=== PATIENT | female | born 1975 | race Caucasian/White ===

== ENCOUNTER 2024-10-08 15:42 | Observation (INO) ==
[2024-10-08 16:09] VITALS: BMI 30.7
--- NOTE | 2024-10-08 16:21 | ED.ABDFE ---
HPI Time Seen Time Seen by Provider: 10/08/24 16:21 PCP Primary Care Physician: Logan Nguyen Doctors Chief Complaint Comments: chest pain Chief Complaint:: Pt c/o abdominal pain x2 days; she has h/o GI issues, PUD and constipation. This morning she woke up with midsternal chest pain. States she tried to "ignore it" but it hasn't gone away. She describes CP as "sharp", doesn't radiate, rates 8/10. Pt states she had cardiac stents placed in April and was started on plavix and ASA. She states she has taken all medications today. Self Treatment fo Chief Complaint: She has been seeing Dr. Ford, Dr Gonzalez for GI issues but cont to have abdominal pain. Pt states "I used to be a drinker", a heavy drinker and states "I can feel my liver protruding". She states she quit drinking in March of this year. Pt denies v/d, last BM was yesterday, states she has had some nausea but "not bad". Pt states she is taking all meds as prescribed. COVID-19 Coronavirus risk:travel/contact w/high risk person: No Has patient experienced Coronavirus symptoms: No Reviewed Nurses Notes Review: Yes Source History Provided: Patient Mode of arrival Mode of Arrival: Ambulatory Timing Onset of Chief Complaint: 10/08/24 Came on: Gradually Duration Since Onset: Since Onset Duration: Days Severity Severity: Moderate Quality Quality: Aching and Sharp Context History of: None Modifying factors Worsening Factors: Movement Improving Factors: Nothing Associated signs and symptoms Associated Signs and Symptoms: Nausea and Constipation Other history Other History: coronary artery disease with stents in place PMH PMH Past Medical History: Yes Past Medical History: Anxiety, Coronary Artery Disease, Depression, Dyslipidemia, GERD, Hypertension and PUD Past Medical History Comment: insomnia, fibromyalgia, diverticulosis, recurrent constipation/GI issues Past Surgical History: Yes Surgical History: Angioplasty/Stents, 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 Family History History of Family Medical Conditions: Yes Family Medical History: Cancer and Coronary Artery Disease Social History Does patient currently use any type of tobacco product: Yes Have you used tobacco products in the last 12 months: Yes Type of Tobacco Use: Cigarettes Does any household member use tobacco: No Alcohol Use: None Do you use any recreational Drugs:: No Lives With: Spouse and Family Lives Where: Home Travel Risk Coronavirus risk:travel/contact w/high risk person: No Has patient experienced Coronavirus symptoms: No Infectious screening In the last 2 months have you had wt loss of >10#?: NO Have you had fever, night sweats or hemotysis?: No Have you traveled outside the country in the last 6 months?: No Isolation: Standard ROS Review of Systems Constitutional: Loss of Appetite Eyes: No Symptoms Reported ENTM: No Symptoms Reported Respiratoy: No Symptoms Reported Cardiovascular: Chest Pain Gastrointestinal/Abdominal: Abdominal Pain and Nausea Genitourinary: No Symptoms Reported Neurological: No Symptoms Reported Musculoskeletal: No Symptoms Reported Integumentary: No Symptoms Reported Hematologic/Lymphatic: No Symptoms Reported Endocrine: No Symptoms Reported Psychiatric: No Symptoms Reported PE Vital Signs Vitals: Vital Signs Temperature 98.5 F Pulse Rate 53 Pulse Rate 56 Pulse Rate 50 Pulse Rate 54 Pulse Rate 49 Pulse Rate 49 Pulse Rate 46 Pulse Rate 44 Pulse Rate 48 Pulse Rate 48 Pulse Rate 47 Pulse Rate 48 Pulse Rate 50 Pulse Rate 46 Pulse Rate 50 Pulse Rate 51 Pulse Rate 47 Pulse Rate 49 Pulse Rate 49 Pulse Rate 52 Pulse Rate 57 Pulse Rate 54 Pulse Rate 55 Pulse Rate 54 Pulse Rate 57 Pulse Rate 54 Pulse Rate 55 Pulse Rate 55 Pulse Rate 52 Pulse Rate 57 Pulse Rate 60 Pulse Rate 59 Pulse Rate 60 Pulse Rate 61 Pulse Rate 59 Pulse Rate 72 Respiratory Rate 31 Respiratory Rate 19 Respiratory Rate 22 Respiratory Rate 26 Respiratory Rate 45 Respiratory Rate 47 Respiratory Rate 29 Respiratory Rate 38 Respiratory Rate 32 Respiratory Rate 20 Respiratory Rate 36 Respiratory Rate 36 Respiratory Rate 40 Respiratory Rate 15 Respiratory Rate 46 Respiratory Rate 23 Respiratory Rate 19 Respiratory Rate 26 Respiratory Rate 17 Respiratory Rate 16 Respiratory Rate 17 Respiratory Rate 19 Respiratory Rate 23 Respiratory Rate 19 Respiratory Rate 19 Respiratory Rate 23 Respiratory Rate 19 Respiratory Rate 21 Respiratory Rate 31 Respiratory Rate 19 Respiratory Rate 19 Respiratory Rate 21 Respiratory Rate 16 Respiratory Rate 21 Respiratory Rate 32 Respiratory Rate 32 Respiratory Rate 21 Respiratory Rate 19 Respiratory Rate 23 Respiratory Rate 31 Respiratory Rate 20 Respiratory Rate 19 Respiratory Rate 29 Respiratory Rate 20 Respiratory Rate 18 Respiratory Rate 27 Respiratory Rate 20 Respiratory Rate 24 Blood Pressure 171/82 Blood Pressure 173/81 Blood Pressure 205/98 Blood Pressure 205/98 Blood Pressure 191/98 Blood Pressure 195/93 Blood Pressure 184/89 Blood Pressure 187/88 Blood Pressure 195/86 Blood Pressure 170/78 Blood Pressure 187/90 Blood Pressure 193/96 Blood Pressure 167/84 Blood Pressure 176/85 Blood Pressure 182/87 Blood Pressure 187/97 Blood Pressure 169/86 Blood Pressure 168/82 Blood Pressure 172/89 Blood Pressure 165/89 Blood Pressure 170/86 Blood Pressure 178/100 Blood Pressure 174/93 Blood Pressure 173/93 Blood Pressure 172/97 Blood Pressure 173/95 Blood Pressure 172/93 Blood Pressure 172/93 Blood Pressure 163/86 Blood Pressure 163/82 Blood Pressure 166/81 Blood Pressure 157/74 Blood Pressure 163/74 Blood Pressure 165/79 O2 Sat by Pulse Oximetry 100 O2 Sat by Pulse Oximetry 99 O2 Sat by Pulse Oximetry 98 O2 Sat by Pulse Oximetry 99 O2 Sat by Pulse Oximetry 97 O2 Sat by Pulse Oximetry 96 O2 Sat by Pulse Oximetry 97 O2 Sat by Pulse Oximetry 97 O2 Sat by Pulse Oximetry 98 O2 Sat by Pulse Oximetry 99 O2 Sat by Pulse Oximetry 94 O2 Sat by Pulse Oximetry 95 O2 Sat by Pulse Oximetry 97 O2 Sat by Pulse Oximetry 93 O2 Sat by Pulse Oximetry 98 O2 Sat by Pulse Oximetry 96 O2 Sat by Pulse Oximetry 94 O2 Sat by Pulse Oximetry 98 O2 Sat by Pulse Oximetry 96 O2 Sat by Pulse Oximetry 97 O2 Sat by Pulse Oximetry 97 O2 Sat by Pulse Oximetry 99 O2 Sat by Pulse Oximetry 97 O2 Sat by Pulse Oximetry 97 O2 Sat by Pulse Oximetry 95 O2 Sat by Pulse Oximetry 98 O2 Sat by Pulse Oximetry 98 O2 Sat by Pulse Oximetry 98 O2 Sat by Pulse Oximetry 97 O2 Sat by Pulse Oximetry 98 O2 Sat by Pulse Oximetry 98 O2 Sat by Pulse Oximetry 95 O2 Sat by Pulse Oximetry 96 O2 Sat by Pulse Oximetry 97 O2 Sat by Pulse Oximetry 98 O2 Sat by Pulse Oximetry 97 General Limitations: No Limitations General Appearance: Alert, Anxious and In Distress Head Head Exam: Normal Inspection, Atraumatic and Normocephalic Eyes Eye exam: Normal Appearance, PERRL and EOMI ENT ENT Exam: Mucous Membranes Moist Neck Neck Exam: Normal Inspection, Full ROM and Trachea Midline Chest Chest Inspection: Normal Inspection Respiratory Respiratory Exam: Normal Lung Sounds Bilat and Chest Wall Tenderness Respiratory Exam: Bilateral: Clear to Auscultation Cardiovascular Cardiovascular Exam: +S1 and +S2 Abdominal Exam Abdominal Exam: Normal Inspection, Normal Bowel Sounds, Soft and Tenderness Abdominal Tenderness: Epigastrium Back Back Exam: Normal Inspection Neurologic Neurological Exam: Alert Psychiatric Psychiatric Exam: Normal Affect Skin Skin Exam: Normal Color MDM Differential Diagnosis Differential Diagnosis- Considerations may include:: Angina/KS and Gastritus/PUD Other differential diagnosis: pneumonia COURSE Treatment Treatment: labs ,ekg,nitro asa,iv morphine ROR Labs Reviewed Laboratory Results Reviewed?: Yes 10/08/24 16:28 10/08/24 16: Laboratory: WBC 7.4 X10^3/uL (3.6-10.0) 10/08/24 16: RBC 5.40 X10^6/uL (3.5-5.4) 10/08/24 16: Hgb 16.5 g/dL (12.0-16.0) H 10/08/24 16:28 Hct 48.0 % (36.0-47.0) H 10/08/24 16: MCV 88.9 fL (80.0-100.0) 10/08/24 16: MCH 30.5 pg (27.0-34.0) 10/08/24 16: MCHC 34.3 g/dL (33.0-35.0) 10/08/24 16: RDW 13.2 % (11.6-16.5) 10/08/24 16: Plt Count 188 X10^3/uL (150.0-450.0) 10/08/24 16: MPV 8.8 fL (7.4-11.0) 10/08/24 16: Neut % (Auto) 67.3 % (42.0-75.0) 10/08/24 16: Lymph % (Auto) 25.9 % (21.0-51.0) 10/08/24 16: [place] % (Auto) 3.9 % (0.0-13.0) 10/08/24 16:28 Eos % (Auto) 1.0 % (0.9-2.9) 10/08/24 16: Baso % (Auto) 1.9 % (0.2-1.0) H 10/08/24 16: Neut # (Auto) 5.0 x10^3/uL (2.2-4.8) H 10/08/24 16:28 Lymph # (Auto) 1.9 X10^3/uL (1.3-2.9) 10/08/24 16:28 [place] # (Auto) 0.3 x10^3/uL (0.3-0.8) 10/08/24 16:28 Eos # (Auto) 0.1 x10^3/uL (0.0-0.2) 10/08/24 16:28 Baso # (Auto) 0.1 X10^3/uL (0.0-0.1) 10/08/24 16:28 Absolute Nucleated RBC 0.8 /100WBC 10/08/24 16:28 PT 14.9 SECONDS (11.8-14.3) 10/08/24 16:28 INR Target Range - 10/08/24 16:28 INR 1.16 (0.8-1.3) 10/08/24 16:28 APTT 31.0 SECONDS (22.9-36.5) 10/08/24 16:28 PTT Comment - 10/08/24 16:28 D-Dimer 0.32 ug/ml (0.0-0.57) 10/08/24 16:28 Sodium 142 mmol/L (136-145) 10/08/24 16:28 Corrected Sodium 143 mmol/L (136-145) 10/08/24 16:28 Potassium 3.6 mmol/L (3.5-5.1) 10/08/24 16:28 Chloride 107 mmol/L (98-107) 10/08/24 16:28 Carbon Dioxide 23.9 mmol/L (21-32) 10/08/24 16:28 BUN 8 mg/dL (7-18) 10/08/24 16:28 Creatinine 0.67 mg/dL (0.55-1.02) 10/08/24 16:28 Est GFR (MDRD) Af Amer > 60 (>60) 10/08/24 16:28 Est GFR (MDRD) Non-Af > 60 (>60) 10/08/24 16:28 Glucose 126 mg/dL (65-99) H 10/08/24 16:28 Calcium 9.4 mg/dL (8.5-10.1) 10/08/24 16:28 Corrected Calcium TNP 10/08/24 16:28 Total Bilirubin 0.60 mg/dL (0.2-1.0) 10/08/24 16:28 AST 20 Units/L (15-37) 10/08/24 16:28 ALT 26 Units/L (12-78) 10/08/24 16:28 Alkaline Phosphatase 158 Units/L (46-116) H 10/08/24 16:28 Creatine Kinase 46 Units/L (26-192) 10/08/24 16:28 Troponin I High Sens 15.9 ng/L (4.0-60.0) 10/08/24 18:27 B-Natriuretic Peptide 139 pg/mL (0-79) H 10/08/24 16:28 Total Protein 8.0 g/dL (6.4-8.2) 10/08/24 16:28 Albumin 3.9 g/dL (3.4-5.0) 10/08/24 16:28 Globulin 4.1 g/dL (2.5-4.5) 10/08/24 16:28 Albumin/Globulin Ratio 1.0 Ratio (1.1-2.1) L 10/08/24 16:28 XRAY X-ray Results: normal cxr .no acute ST changes EKG except LBBB as before Opioid Opioid Risk Tool Age ([place] box if 16-45): No History of Preadolescent Sexual Abuse: No Total: 0 Total Score Risk Category: Low Risk Copyright: [facility] predicting aberrant behaviors Discharge Plan Diagnosis Discharge Problem: Chest pain Discharge Plan Patient Disposition: 09 ADMITTED INPATIENT Condition: Stable Prescriptions: No Action aspirin 81 mg tablet,chewable 1 tab PO QDAY sucralfate 100 mg/mL suspension 10 ml PO TID PRN Rx Instructions: take 15 mins prior to meal atorvastatin 40 mg tablet 80 mg PO QPM clopidogrel 75 mg tablet 75 mg PO QDAY tramadol 50 mg tablet 50 mg PO QDAY PRN (Reason: pain) pantoprazole 40 mg tablet,delayed release (DR/EC) 40 mg PO BID metoprolol tartrate 50 mg tablet 50 mg PO BID hydralazine 50 mg tablet 50 mg PO BID losartan 100 mg tablet 100 mg PO QDAY metoclopramide HCl 10 mg tablet 10 mg PO QID duloxetine 60 mg capsule,delayed release(DR/EC) 60 mg PO QDAY lactulose 10 gram/15 mL solution 30 ml PO BID PRN (Reason: constipation) Health Concerns: Post Hospitalization: new medications and changes needed to prevent readmission or further decline. Pt educated and given instructions on all concerns. Plan of Treatment: Continue with present treatment and follow up plan. Pt is to keep follow up appointment as instructed and take medications as ordered. Orders to Discharge Patient Discharge Orders: Transfer (Routine); Ordered 10/08/24 Ordered By: Tiburcio Yeager Follow ups/Referrals Follow ups/Referrals: Keli Ford MD [Primary Care Provider, Unknown] - 3 days Instructions Stand Alone Forms: Find Help Web Site, Post Hospital Follow Up Care Print Language: LATVIAN ADDITIONAL NOTES Additional Notes Additional Notes: cardiac enzymes x2 neg .No acute ST changes but has lbbb .pt has reproducible left chest pain .Does have hx of PUD /gastritis seeing. Has been evaluated by dr Lisa berry on PPI and carafate
[2024-10-08] MEDS: NITROSTAT SL PRN (16:31)
--- NOTE | 2024-10-08 16:33 | EKG ---
Test Reason : chest pain Blood Pressure : */* mmHG Vent. Rate : 59 BPM Atrial Rate : 59 BPM P-R Int : 140 ms QRS Dur : 130 ms QT Int : 502 ms P-R-T Axes : 28 2 138 degrees QTc Int : 496 ms Sinus bradycardia Left bundle branch block Abnormal ECG When compared with ECG of 07-SEP-2024 18:30, T wave inversion less evident in Lateral leads Confirmed by Seymour Rothman MD ([id number]) on 10/09/2024 8:15:10 AM Referred By: Confirmed By: Seymour Rothman MD
[2024-10-08 16:44] LABS: MEAN PLATELET VOLUME 8.8 fL (7.4-11.0); RED CELL DISTRIBUTION WIDTH 13.2 % (11.6-16.5)
--- NOTE | 2024-10-08 16:44 | RAD ---
EXAM: CHEST, 1 VIEW HISTORY: chest pain; Unavailable COMPARISON: August 2024 FINDINGS: The trachea is midline. The cardiac silhouette is unremarkable. The lungs are clear without focal infiltrate or effusion. The bony thorax is unremarkable. IMPRESSION: No acute cardiopulmonary disease. THIS IS AN ELECTRONICALLY VERIFIED FINAL REPORT 10/08/2024 4:39 PM - Electronically signed by Nam Betts MD
[2024-10-08] MEDS: MORPHINE SULFATE INJ 2 MG INJ IVP ONE ×2 (16:46→17:25)
[2024-10-08 16:47] LABS: INR 1.16 (0.8-1.3)
[2024-10-08 16:56] LABS: COR NA(FOR HYPERGLY) 143 mmol/L (136-145); CREATININE 0.67 mg/dL (0.55-1.02); eGFR NON BLACK RACES > 60 (>60)
[2024-10-08] MEDS: TYLENOL 500 MG TAB EXTRA STRENGTH PO ONE (18:03)
[2024-10-08] MEDS: APRESOLINE TAB 25 MG PO ONE (19:28)
[2024-10-08] MEDS ORDERED: ZOFRAN TAB 4 MG SL PRN (22:16)
[2024-10-08] MEDS ORDERED: TYLENOL 325 MG TAB PO PRN (22:16)
[2024-10-08] MEDS: APRESOLINE TAB 25 MG PO SCH (23:04)
[2024-10-08] MEDS: LIPITOR TAB 40 MG PO SCH (23:05)
[2024-10-08] MEDS: PROTONIX TAB 40 MG PO SCH (23:05)
[2024-10-08] MEDS: MORPHINE SULFATE INJ 2 MG INJ IVP PRN (23:48)
[2024-10-09] MEDS: ULTRAM PO PRN (01:07)
[2024-10-09] MEDS: LOPRESSOR TAB 50 MG PO SCH (03:42)
[2024-10-09] MEDS: PLAVIX PO SCH (08:08)
[2024-10-09] MEDS: CYMBALTA PO SCH (08:08)
[2024-10-09] MEDS: COZAAR PO SCH (08:08)
[2024-10-09] MEDS: ASPIRIN 81 MG CHEWTAB PO SCH (08:08)
[2024-10-09] MEDS: TORADOL 30 MG VIAL IVP ONE (10:33)
[2024-10-09] MEDS: PEPCID TAB 20 MG PO SCH (10:33)
--- NOTE | 2024-10-09 10:50 | DR.H&P ---
H&P History & Physical for Day of: H&P Date: 10/09/24 Chief Complaint Chief Complaint: abdominal pain, nausea History of Present Illness History of Present Illness: Patient is a 49-year-old female with a past medical history of CAD status post PCI in April 2024, gastritis, PUD, GERD, anxiety, depression, hypertension, hyperlipidemia and history of alcohol use presented with worsening abdominal pain and nausea. She also had some mid-sternal chest tightness. She has been having the symptoms for a while with recent worsening. She does see GI and recently had EGD which showed severe gastritis and peptic ulcer disease. She has been taking Protonix, Carafate and dicyclomine. Her blood pressure was elevated in the ER 220/100. Workup included troponins x 3 negative, BNP 139, WBC 7.4 creatinine 0.67. Chest x-ray was negative. She was given nitroglycerin and hydralazine for blood pressure control in the ER. She reports having a headache this morning. She continues to have abdominal pain, more on the right side. Labs/imaging reviewed: - WBC 7.4 hemoglobin 16.5 platelet 188 potassium 3.6 creatinine 0.67 BNP 139 glucose 126 - Troponin x 3 negative - Chest x-ray no acute changes Plan: Continue to monitor with telemetry. Order abdominal ultrasound. Continue Protonix, add famotidine and Carafate. Add Toradol. Continue pain control as needed. Monitor blood pressure. Resume home medications. Replace electrolytes as per protocol. Monitor a.m. labs and imaging. 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 Family History Family Medical History: Cancer Social History Does patient currently use any type of tobacco product: Yes Have you used tobacco products in the last 12 months: Yes Type of Tobacco Use: Cigarettes How many years tobacco product used: 20 Does any household member use tobacco: No Alcohol Use: None Drug Use: None Medications Home Medications: Home Medications Medication Instructions Recorded Confirmed Type aspirin 81 mg chewable tablet 1 tab PO QDAY 05/29/24 0 10/08/24 History sucralfate 100 mg/mL oral 10 ml PO TID PRN 09/07/24 History suspension atorvastatin 40 mg tablet 80 mg PO QPM 10/08/24 History clopidogrel 75 mg tablet 75 mg PO QDAY 10/08/2410/08 History duloxetine 60 mg capsule,delayed 60 mg PO QDAY 5 10/08/24 History release hydralazine 50 mg tablet 50 mg PO BID 10/08/24 History lactulose 10 gram/15 mL oral 30 ml PO BID PRN constipa tion 10/08/24 10/08/24 History solution losartan 100 mg tablet 100 mg PO QDAY 10/08/2409/22 History metoclopramide HCl 10 mg tablet 10 mg PO QID 10/08/24 10/08/24 History metoprolol tartrate 50 mg tablet 50 mg PO BID 10/08/24 10/08/24 History pantoprazole 40 mg tablet,delayed 40 mg PO BID 5 10/08/24 History release tramadol 50 mg tablet 50 mg PO QDAY PRN pain 10/0810/08/24 History Allergies Allergies Allergy/AdvReac Type Severity Reaction Status Date / Time No Known Drug Allergies Allergy Unknown Verified 10/08/24 15:43 Labs 10/08/24 16:28 10/08/24 16:28 Labs: Laboratory WBC 7.4 X10^3/uL (3.6-10.0) 10/08/24 16:28 RBC 5.40 X10^6/uL (3.5-5.4) 10/08/24 16:28 Hgb 16.5 g/dL (12.0-16.0) H 10/08/24 16:28 Hct 48.0 % (36.0-47.0) H 10/08/24 16:28 MCV 88.9 fL (80.0-100.0) 10/08/24 16:28 MCH 30.5 pg (27.0-34.0) 10/08/24 16:28 MCHC 34.3 g/dL (33.0-35.0) 10/08/24 16:28 RDW 13.2 % (11.6-16.5) 10/08/24 16:28 Plt Count 188 X10^3/uL (150.0-450.0) 10/08/24 16:28 MPV 8.8 fL (7.4-11.0) 10/08/24 16: Neut % (Auto) 67.3 % (42.0-75.0) 10/08/24 16:28 Lymph % (Auto) 25.9 % (21.0-51.0) 10/08/24 16:28 [place] % (Auto) 3.9 % (0.0-13.0) 10/08/24 16:28 Eos % (Auto) 1.0 % (0.9-2.9) 10/08/24 16:28 Baso % (Auto) 1.9 % (0.2-1.0) H 10/08/24 16:28 Neut # (Auto) 5.0 x10^3/uL (2.2-4.8) H 10/08/24 16:28 Lymph # (Auto) 1.9 X10^3/uL (1.3-2.9) 10/08/24 16:28 [place] # (Auto) 0.3 x10^3/uL (0.3-0.8) 10/08/24 16:28 Eos # (Auto) 0.1 x10^3/uL (0.0-0.2) 10/08/24 16:28 Baso # (Auto) 0.1 X10^3/uL (0.0-0.1) 10/08/24 16:28 Absolute Nucleated RBC 0.8 /100WBC 10/08/24 16:28 PT 14.9 SECONDS (11.8-14.3) 10/08/24 16:28 INR Target Range - 10/08/24 16: INR 1.16 (0.8-1.3) 10/08/24 16:28 APTT 31.0 SECONDS (22.9-36.5) 10/08/24 16:28 PTT Comment - 10/08/24 16:28 D-Dimer 0.32 ug/ml (0.0-0.57) 10/08/24 16:28 Sodium 142 mmol/L (136-145) 10/08/24 16:28 Corrected Sodium 143 mmol/L (136-145) 10/08/24 16:28 Potassium 3.6 mmol/L (3.5-5.1) 10/08/24 16:28 Chloride 107 mmol/L (98-107) 10/08/24 16:28 Carbon Dioxide 23.9 mmol/L (21-32) 10/08/24 16:28 BUN 8 mg/dL (7-18) 10/08/24 16:28 Creatinine 0.67 mg/dL (0.55-1.02) 10/08/24 16:28 Est GFR (MDRD) Af Amer > 60 (>60) 10/08/24 16:28 Est GFR (MDRD) Non-Af > 60 (>60) 10/08/24 16:28 Glucose 126 mg/dL (65-99) H 10/08/24 16:28 Calcium 9.4 mg/dL (8.5-10.1) 10/08/24 16:28 Corrected Calcium TNP 10/08/24 16:28 Total Bilirubin 0.60 mg/dL (0.2-1.0) 10/08/24 16:28 AST 20 Units/L (15-37) 10/08/24 16:28 ALT 26 Units/L (12-78) 10/08/24 16:28 Alkaline Phosphatase 158 Units/L (46-116) H 10/08/24 16:28 Creatine Kinase 46 Units/L (26-192) 10/08/24 16:28 Troponin I High Sens 19.6 ng/L (4.0-60.0) 10/08/24 22:05 B-Natriuretic Peptide 139 pg/mL (0-79) H 10/08/24 16:28 Total Protein 8.0 g/dL (6.4-8.2) 10/08/24 16:28 Albumin 3.9 g/dL (3.4-5.0) 10/08/24 16:28 Globulin 4.1 g/dL (2.5-4.5) 10/08/24 16:28 Albumin/Globulin Ratio 1.0 Ratio (1.1-2.1) L 10/08/24 16:28 Review of Systems Constitutional: No Symptoms Reported Eyes: No Symptoms Reported ENT: No Symptoms Reported Respiratory: No Symptoms Reported Cardiovascular: Chest Pain Gastrointestinal: Nausea, Abdominal Pain and Constipation Genitourinary: No Symptoms Reported Musculoskeletal: No Symptoms Reported Skin: No Symptoms Reported Neurological: Other (headache) Physical Exam Vital Signs: Vital Signs Temperature 98.0 F Pulse Rate [Bilateral Radial] 54 Respiratory Rate 20 Respiratory Rate 18 Respiratory Rate 18 Respiratory Rate 18 Blood Pressure [Left Arm] 155/72 O2 Sat by Pulse Oximetry 95 Oriented: Normal Respiratory: Clear Throughout Cardiovascular: Normal Auscultation: Bowel Sounds: Normal Tenderness: RUQ, RLQ and Periumbilical Skin: Normal Musculoskeletal: Normal Psychiatric: Normal Mood Description: Calm Affect: Anxious Speech Pattern: Clear and Appropriate Assessment/Plan (1) Chest pain: Qualifiers: Chest pain type: unspecified Qualified Code(s): R07.9 - Chest pain, unspecified Status: Acute (2) Accelerated hypertension: Status: Acute (3) Abdominal pain: Qualifiers: Abdominal location: left lower quadrant Qualified Code(s): R10.32 - Left lower quadrant pain Status: Acute (4) PUD (peptic ulcer disease): Status: Chronic (5) CAD (coronary artery disease): Qualifiers: Coronary Disease-Associated Artery/Lesion type: [place] artery [place] vs. transplanted heart: [place] heart Associated angina: without angina Q ualified Code(s): I25.10 - Atherosclerotic heart disease of [place] coronary artery without angina pectoris Status: Chronic (6) Gastritis: Qualifiers: Gastritis type: unspecified gastritis Chronicity: chronic Gastritis bleeding: presence of bleeding unspecified Qualified Code(s): K29.50 - Unspecified chronic gastritis without bleeding Status: Chronic
[2024-10-09] MEDS: CARAFATE PO SCH (11:57)
[2024-10-09] MEDS ORDERED: DEMEROL INJ IVP PRN (12:44)
[2024-10-09] MEDS: MORPHINE SULFATE INJ 2 MG INJ IVP PRN (13:18)
[2024-10-09] MEDS: FIORICET TAB PO PRN (17:12)
[2024-10-10 06:06] LABS: MEAN PLATELET VOLUME 8.8 fL (7.4-11.0); RED CELL DISTRIBUTION WIDTH 12.9 % (11.6-16.5)
[2024-10-10 06:31] LABS: CREATININE 0.63 mg/dL (0.55-1.02); eGFR NON BLACK RACES > 60 (>60)
[2024-10-10] MEDS ORDERED: CONSULT PHARMACY - POTASSIUM & MAGNESIUM XX SCH (08:00)
[2024-10-10] MEDS: MAGNESIUM SULFATE 1 GRAM/100 mL PREMIX 1 G/100 ML BAG IV SCH (08:30)
[2024-10-10] MEDS: NICOTINE PATCH TD SCH (08:33)
--- NOTE | 2024-10-10 09:53 | US ---
EXAM: US ABDOMEN COMPLETE HISTORY: RUQ PAIN, NAUSEA; COMPARISON: None TECHNIQUE: 81 images made by the tar heel. Rader scale and color-flow images of the abdomen were obtained. FINDINGS: The liver has normal echogenicity and size. No mass or intrahepatic biliary duct dilatation is present. The intrahepatic inferior vena cava was imaged. The portal vein is patent with blood flow toward the liver. The hepatic artery was patent. The visualized hepatic veins are patent with blood flow toward the right atrium. Very limited visualization of the pancreas shows no significant abnormality. No gallbladder is identified consistent with prior cholecystectomy. No extrahepatic biliary duct dilatation; common duct is normal. The right kidney is normal in size and echogenicity. The left kidney is normal in size and echogenicity. No hydronephrosis or solid mass. Right resistive index measures 0.71. Left resistive index measures 0.63. The spleen has a lobular contour, but is normal in size and echogenicity. Aorta has a normal caliber with no abdominal aortic aneurysm. Aortic bifurcation not seen because of overlying bowel gas. No ascites. IMPRESSION: 1. No significant abnormality THIS IS AN ELECTRONICALLY VERIFIED FINAL REPORT 10/10/2024 9:49 AM - Electronically signed by Dominguez Capellan MD
[2024-10-10] MEDS: K-RIDER 10 MEQ/100 ML WATER 10 MEQ/100 ML BAG IV SCH (10:27)
[2024-10-10] MEDS ORDERED: LEVSIN/MAALOX/LIDOC VISC PO PRN (10:29)
--- NOTE | 2024-10-10 10:36 | PCM.PROG ---
Progress Note Progress Note for Day of Date of Exam: 10/10/24 Subjective Subjective: Patient seen at bedside, no acute events overnight. She states her headache has resolved. She still has abdominal pain with some nausea. She reports decreased appetite. She had an abdominal ultrasound done this morning. She denies any vomiting or diarrhea. Labs/imaging reviewed: - WBC 5.3 hemoglobin 15.1 potassium 3.5 creatinine 0.63 - Abdominal ultrasound reviewed: No acute changes Plan: Continue Protonix, Pepcid and Carafate. Add GI cocktail. Continue pain control. Will DC Tylenol and tramadol. Add Marion as needed. Continue morphine prn. Replace electrolytes as per protocol. Continue zofran prn. Switch to full liquid diet. Continue home medications. Monitor AM labs/imaging. Past Medical Family Social History Allergies: Allergies No Known Drug Allergies Allergy (Unknown, Verified 10/08/24 15:43) Onset Date: 11/17/2021 Vital Signs and I&O's Vital Signs: Vital Signs Temperature 97.9 F Temperature 98.0 F Pulse Rate [Bilateral Radial] 54 Pulse Rate [Bilateral Radial] 52 Respiratory Rate 21 Respiratory Rate 21 Respiratory Rate 20 Respiratory Rate 20 Respiratory Rate 20 Respiratory Rate 20 Respiratory Rate 20 Blood Pressure [Left Arm] 161/81 Blood Pressure [Left Arm] 160/80 O2 Sat by Pulse Oximetry 96 O2 Sat by Pulse Oximetry 98 Intake and Output: Intake & Output 10/07/24 10/08/24 10/09/24 10/10/24 23:59 23:59 23:59 23:59 Intake Total 1130 / 1130 510 / 510 Balance 1130 / 1130 510 / 510 Physical Exam Oriented: Normal Respiratory: Normal Cardiovascular: Normal Auscultation: Bowel Sounds: Normal Tenderness: Periumbilical and Mild Skin: Normal Musculoskeletal: Normal Psychiatric: Normal Mood Description: Calm Affect: Anxious Speech Pattern: Clear and Appropriate Laboratory and Diagnostics 10/10/24 05:18 10/10/24 05:18 Labs: Laboratory WBC 5.3 X10^3/uL (3.6-10.0) 10/10/24 05:18 RBC 5.08 X10^6/uL (3.5-5.4) 10/10/24 05:18 Hgb 15.1 g/dL (12.0-16.0) 10/10/24 05:18 Hct 45.2 % (36.0-47.0) 10/10/24 05:18 MCV 88.9 fL (80.0-100.0) 10/10/24 05:18 MCH 29.8 pg (27.0-34.0) 10/10/24 05:18 MCHC 33.5 g/dL (33.0-35.0) 10/10/24 05:18 RDW 12.9 % (11.6-16.5) 10/10/24 05:18 Plt Count 143 X10^3/uL (150.0-450.0) L 10/10/24 05:18 MPV 8.8 fL (7.4-11.0) 10/10/24 05:18 Neut % (Auto) 57.5 % (42.0-75.0) 10/10/24 05:18 Lymph % (Auto) 32.6 % (21.0-51.0) 10/10/24 05:18 [place] % (Auto) 6.6 % (0.0-13.0) 10/10/24 05:18 Eos % (Auto) 1.8 % (0.9-2.9) 10/10/24 05:18 Baso % (Auto) 1.5 % (0.2-1.0) H 10/10/24 05:18 Neut # (Auto) 3.1 x10^3/uL (2.2-4.8) 10/10/24 05:18 Lymph # (Auto) 1.7 X10^3/uL (1.3-2.9) 10/10/24 05:18 [place] # (Auto) 0.4 x10^3/uL (0.3-0.8) 10/10/24 05:18 Eos # (Auto) 0.1 x10^3/uL (0.0-0.2) 10/10/24 05:18 Baso # (Auto) 0.1 X10^3/uL (0.0-0.1) 10/10/24 05:18 Absolute Nucleated RBC 0.1 /100WBC 10/10/24 05:18 PT 14.9 SECONDS (11.8-14.3) 10/08/24 16:28 INR Target Range - 10/08/24 16:28 INR 1.16 (0.8-1.3) 10/08/24 16:28 APTT 31.0 SECONDS (22.9-36.5) 10/08/24 16:28 PTT Comment - 10/08/24 16:28 D-Dimer 0.32 ug/ml (0.0-0.57) 10/08/24 16:28 Sodium 142 mmol/L (136-145) 10/10/24 05:18 Corrected Sodium TNP 10/10/24 05:18 Potassium 3.5 mmol/L (3.5-5.1) 10/10/24 05:18 Chloride 108 mmol/L (98-107) H 10/10/24 05:18 Carbon Dioxide 27.3 mmol/L (21-32) 10/10/24 05:18 BUN 12 mg/dL (7-18) 10/10/24 05:18 Creatinine 0.63 mg/dL (0.55-1.02) 10/10/24 05:18 Est GFR (MDRD) Af Amer > 60 (>60) 10/10/24 05:18 Est GFR (MDRD) Non-Af > 60 (>60) 10/10/24 05:18 Glucose 91 mg/dL (65-99) 10/10/24 05:18 Calcium 9.0 mg/dL (8.5-10.1) 10/10/24 05:18 Corrected Calcium TNP 10/10/24 05:18 Magnesium 1.9 mg/dL (2.0-2.9) L 10/10/24 05:18 Total Bilirubin 0.60 mg/dL (0.2-1.0) 10/10/24 05:18 AST 26 Units/L (15-37) 10/10/24 05:18 ALT 35 Units/L (12-78) 10/10/24 05:18 Alkaline Phosphatase 148 Units/L (46-116) H 10/10/24 05:18 Creatine Kinase 46 Units/L (26-192) 10/08/24 16:28 Troponin I High Sens 19.6 ng/L (4.0-60.0) 10/08/24 22:05 B-Natriuretic Peptide 139 pg/mL (0-79) H 10/08/24 16:28 Total Protein 6.8 g/dL (6.4-8.2) 10/10/24 05:18 Albumin 3.5 g/dL (3.4-5.0) 10/10/24 05:18 Globulin 3.3 g/dL (2.5-4.5) 10/10/24 05:18 Albumin/Globulin Ratio 1.1 Ratio (1.1-2.1) 10/10/24 05:18 Plan (1) Chest pain: Status: Acute Qualifiers: Chest pain type: unspecified Qualified Code(s): R07.9 - Chest pain, unspecified (2) Accelerated hypertension: Status: Chronic (3) Abdominal pain: Status: Acute Qualifiers: Abdominal location: left lower quadrant Qualified Code(s): R10.32 - Left lower quadrant pain (4) PUD (peptic ulcer disease): Status: Chronic (5) CAD (coronary artery disease): Status: Chronic Qualifiers: Coronary Disease-Associated Artery/Lesion type: [place] artery [place] vs. transplanted heart: [place] heart Associated angina: without angina Q ualified Code(s): I25.10 - Atherosclerotic heart disease of [place] coronary artery without angina pectoris (6) Gastritis: Status: Chronic Qualifiers: Chronicity: chronic Gastritis bleeding: presence of bleeding unspecified Gastritis type: unspecified gastritis Qualified Code(s): K29.50 - Unspecified chronic gastritis without bleeding
[2024-10-10] MEDS: NORCO 5/325 MG TAB PO PRN (12:34)
[2024-10-10] MEDS: NITROSTAT ONE (18:43)
[2024-10-10] MEDS: MORPHINE SULFATE INJ 2 MG INJ ONE ×2 (18:44)
[2024-10-10] MEDS: TYLENOL 500 MG TAB EXTRA STRENGTH PO ONE (18:44)
[2024-10-11 00:27] VITALS: RESP 18
[2024-10-11 05:52] LABS: MEAN PLATELET VOLUME 9.0 fL (7.4-11.0); RED CELL DISTRIBUTION WIDTH 13.2 % (11.6-16.5)
[2024-10-11 06:19] LABS: CREATININE 0.62 mg/dL (0.55-1.02); eGFR NON BLACK RACES > 60 (>60)
[2024-10-11 14:37] VITALS: BP 159/88; PULSE 59; TEMP 97.6; O2SAT 96
== END 2024-10-11 10:10 | disposition home or self-care (01) ==
LOC: ER 15:42 → MED/SURG 15:42
PROVIDERS: ADMIT Internal Medicine; ATTEND Internal Medicine